=== PATIENT | male | born 1990 | race Caucasian/White ===

== ENCOUNTER 2023-09-30 10:17 | Emergency (ER) | payer SELFPAY ==
--- NOTE | 2023-09-30 10:35 | ED Physician Documentation ---
PD HPI WOUND RECHECK - Stated complaint Stated Complaint: LT HAND STITCHES - Chief complaint Chief Complaint: Laceration - Histroy obtained from History obtained from: Patient PD PAST MEDICAL HISTORY - Past Medical History Past Medical History: No - Past Surgical History Past Surgical History: Yes Ortho: Shoulder arthroplasty - Present Medications Home Medications: Ambulatory Orders Medication Instructions Recorded Confirmed No Known Home Medications 09/30/23 09/30/23 - Allergies Allergies/Adverse Reactions: Allergies Allergy/AdvReac Type Severity Reaction Status Date / Time No Known Drug Allergies Allergy Verified 09/30/23 10:33 - Social History Does the pt smoke?: Yes Smoking Status: Current every day smoker Does the pt drink ETOH?: Yes Does the pt have substance abuse?: No Substance Use and Type: Marijuana - Immunizations Immunizations are current?: No - POLST Patient has POLST: No Results - Vitals Vitals: Vital Signs - 24 hr 09/30/23 10:29 Temperature 36.2 C L Heart Rate 74 Respiratory 4 L Rate Blood Pressure 119/74 O2 Saturation 98 Oxygen O2 Source Room air Departure - Departure
--- NOTE | 2023-09-30 10:52 | ED Physician Documentation ---
PD HPI UPPER EXT INJURY - Stated complaint Stated Complaint: LT HAND STITCHES - Chief complaint Chief Complaint: Laceration - History obtained from History obtained from: Patient - History of Present Illness Location: Left, Hand (he states he fell and cut his palm on a piece of glass at the flexion crease of the middle finger MCP.), Finger Type of injury: Fall Timing - onset: Last night (he did clean it after and had it coverred with bandage.) Timing - details: Abrupt onset Worsened by: Moving, Palpating Associated symptoms: No: Weakness, Numbness, Tingling Similar symptoms before: Has not had sx before Review of Systems Neurologic: denies: Focal weakness, Numbness, Head injury, LOC PD PAST MEDICAL HISTORY - Past Medical History Past Medical History: No - Past Surgical History Past Surgical History: Yes Ortho: Shoulder arthroplasty - Present Medications Home Medications: Ambulatory Orders Medication Instructions Recorded Confirmed No Known Home Medications 09/30/23 09/30/23 - Allergies Allergies/Adverse Reactions: Allergies Allergy/AdvReac Type Severity Reaction Status Date / Time No Known Drug Allergies Allergy Verified 09/30/23 10:33 - Social History Does the pt smoke?: Yes Smoking Status: Current every day smoker Does the pt drink ETOH?: Yes Does the pt have substance abuse?: No Substance Use and Type: Marijuana - Immunizations Immunizations are current?: No - POLST Patient has POLST: No PD ED PE NORMAL - Vitals Vital signs reviewed: Yes - General General: Alert and oriented X 3, No acute distress, Well developed/nourished - Derm Derm: Normal color, Warm and dry - Extremities Extremities: Other (laceration to fatty tissue at flexion MCP crease left middle finger. No FB. Clean appearance. ) - Neuro Neuro: Alert and oriented X 3, No motor deficit (able to felx well at IP joints and MCP. ), No sensory deficit (normal sensation both sides of finger. ) Results - Vitals Vitals: Oxygen O2 Source Room air Procedures - Laceration (location) middle finger flexion crease Length in cm: 1.8 Wound type: Linear, Into subcut fat, Clean Neurovascular status: Sensory intact, Motor intact, Vascular intact Tendon involvement: Tendon intact Anesthesia: Lidocaine 1% with epi Wound preparation: Irrigated copiously NS, Wound explored, To the base Skin layer closure: Nylon, Interrupted, Size #-0 - enter number (4), Sutures - enter # (7) Other: Patient tolerated well, No complications PD Medical Decision Making - ED course Complexity details: re-evaluated patient (he did get pale and some nausea with feeling lightheaded while suturing. I laid him back flat from sitting position and improved promptly. Pulse check at the time felt about 50-60 to me. Was not on moniter but seemed simple vasovagal with prompt improvement. ), considered differential (fell and cut palm/finger on piece of glass. He does not suspect retained FB. ), d/w patient Departure - Departure Disposition: 01 Home, Self Care Clinical Impression: Laceration of left hand Qualifiers: Encounter type: initial encounter Foreign body presence: without foreign body Qualified Code(s): S61.412A - Laceration without foreign body of left hand, initial encounter Condition: Stable Record reviewed to determine appropriate education?: Yes Instructions: ED Laceration Hand Comments: It is okay to wash and shower. Clean off the wound twice a day with soap and water, or peroxide and water. Apply some antibiotic ointment to it to keep it moist. Also to watch for signs of infection such as purulence, redness or increasing pain. Return to your primary care or the ER at the specified time for suture removal. Suture removal 8 to 10 days. Tylenol ibuprofen as needed for pains. Forms: PCP List Discharge Date/Time: 09/30/23 11:37
[2023-09-30 11:42] VITALS: BP 116/61; O2SAT 99
== END 2023-09-30 11:37 | disposition home or self-care (01) ==
LOC: ED 10:17
DX: S61.412A Laceration without foreign body of left hand, initial encounter (principal); W19.XXXA Unspecified fall, initial encounter; W25.XXXA Contact with sharp glass, initial encounter; F17.200 Nicotine dependence, unspecified, uncomplicated
CPT/HCPCS: 12001; 99282

== ENCOUNTER 2024-03-11 16:41 | Outpatient (CLI) | payer MEDICAID, OTHER | END 2024-03-11 22:09 | disposition critical access hospital (66) | LOC: EMS 16:41 | DX: Z04.6 Encounter for general psychiatric examination, requested by authority (principal); R46.2 Strange and inexplicable behavior; Z59.00 Homelessness unspecified | CPT/HCPCS: A0425; A0429; A0999 ==

== ENCOUNTER 2024-03-11 16:59 | Emergency (ER) | payer MEDICAID, OTHER ==
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
[2024-03-11 17:21] LABS: BASOPHILS # (AUTO) 0.1 10^3/uL (0.0-0.1); BASOPHILS % (AUTO) 0.6 %; EOSINOPHILS # (AUTO) 0.2 10^3/uL (0.0-0.7); EOSINOPHILS % (AUTO) 1.9 %; HCT - HEMATOCRIT 42.4 % (42.0-52.0); HGB - HEMOGLOBIN 13.8 g/dL (14.0-18.0); LYMPHOCYTES # (AUTO) 2.3 10^3/uL (1.5-3.5); LYMPHOCYTES % (AUTO) 26.4 %; MEAN CORPUSCULAR HEMOGLOBIN 29.7 pg (27.0-31.0); MEAN CORPUSCULAR HGB CONC 32.5 g/dL (32.0-36.0); MEAN CORPUSCULAR VOLUME 91.4 fL (80.0-94.0); MEAN PLATELET VOLUME 9.2 fL (7.4-11.4); MONOCYTES # (AUTO) 0.9 10^3/uL (0.0-1.0); MONOCYTES % (AUTO) 10.3 %; NEUTROPHILS # (AUTO) 5.2 10^3/uL (1.5-6.6); NEUTROPHILS % (AUTO) 60.7 %; PLT - PLATELET COUNT 254 10^3/uL (130-450); RED BLOOD COUNT 4.64 10^6/uL (4.70-6.10); RED CELL DISTRIBUTION WIDTH 13.1 % (12.0-15.0); WHITE BLOOD COUNT 8.6 x10^3/uL (4.8-10.8)
[2024-03-11 17:30] LABS: BILIRUBIN,URINE NEGATIVE (NEGATIVE); GLUCOSE, URINE (UA) NEGATIVE (NEGATIVE); KETONES,URINE (UA) NEGATIVE (NEGATIVE); LEUKOCYTE ESTERASE, URINE NEGATIVE (NEGATIVE); NITRITE,URINE NEGATIVE (NEGATIVE); OCCULT BLOOD,URINE NEGATIVE (NEGATIVE); PH,URINE 6.5 PH (5.0-7.5); PROTEIN,URINE NEGATIVE (NEGATIVE); UROBILINOGEN,URINE 0.2 (NORMAL) E.U./dL (NORMAL)
[2024-03-11 17:32] LABS: CLARITY,URINE CLEAR (CLEAR)
[2024-03-11 17:36] LABS: MAGNESIUM 1.8 mg/dL (1.7-2.3)
[2024-03-11 17:41] LABS: AMPHETAMINE SCREEN,URINE POSITIVE (NEGATIVE); BARBITURATE SCREEN,UR NEGATIVE (NEGATIVE); BENZODIAZEPINES SCREEN, URINE NEGATIVE (NEGATIVE); BUPRENORPHINE SCREEN, URINE NEGATIVE (NEGATIVE); COCAINE SCREEN URINE NEGATIVE (NEGATIVE); METHADONE SCREEN, URINE NEGATIVE (NEGATIVE); METHAMPHETAMINES SCREEN, URINE POSITIVE (NEGATIVE); OPIATE SCREEN, URINE NEGATIVE (NEGATIVE); OXYCODONE SCREEN, URINE NEGATIVE (NEGATIVE); THC CANNABINOID SCREEN, URINE NEGATIVE (NEGATIVE); TRICYCLIC ANTIDEPRESSANT,URINE NEGATIVE (NEGATIVE)
[2024-03-11 17:42] LABS: ACETAMINOPHEN 0.2 ug/mL; ALBUMIN 4.8 g/dL (3.2-5.5); ALBUMIN/GLOBULIN RATIO 1.8 (1.0-2.2); ALKALINE PHOSPHATASE 63 IU/L (42-121); ALT ALANINE AMINOTRANSFERASE 23 IU/L (10-60); AST ASPARTATE AMINOTRANSFERASE 26 IU/L (10-42); BILIRUBIN,TOTAL 0.4 mg/dL (0.2-1.0); BUN - BLOOD UREA NITROGEN 11 mg/dL (6-20); CALCIUM 9.7 mg/dL (8.5-10.3); CARBON DIOXIDE - CO2 28 mmol/L (21-32); CHLORIDE 99 mmol/L (101-111); CK- CREATINE KINASE 373 IU/L (30-223); CREATININE 0.8 mg/dL (0.6-1.3); ETOH - ETHANOL < 10.0 mg/dL; GFR - MDRD 113 (>89); GLUCOSE 140 mg/dL (74-104); LIPASE 23 U/L (11-82); POTASSIUM 3.2 mmol/L (3.5-4.5); SODIUM 136 mmol/L (135-145); TOTAL PROTEIN 7.5 g/dL (6.4-8.9)
[2024-03-11 17:44] LABS: SALICYLATE < 1.5 mg/dL
[2024-03-11 17:50] LABS: THYROID STIMULATING HORMONE 1.25 uIU/mL (0.34-5.60)
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
[2024-03-12] MEDS: NICOTINE 21 MG PATCH TOP STA (03:15)
--- NOTE | 2024-03-12 05:53 | ED Physician Documentation ---
ED Addendum - Addendum Addendum: 03/12/24 05:51 The patient was signed out to me at change of shift, Pending return to sobriety after presenting high on methamphetamines. The patient was calm and cooperative overnight and by morning, was amiable and singing songs, stating that he was feeling better and he like to leave so he could smoke a cigarette. He denied further suicidal ideation. He was able to have meaningful conversation with staff and I felt he was stable for discharge home. Final impression: 1. Methamphetamine abuse 2. Psychosis Disposition: Discharge home in stable and improved condition.
[2024-03-12 06:46] VITALS: BP 142/84; O2SAT 99
--- NOTE | 2024-03-12 08:45 | ED Physician Documentation ---
ED Addendum - Addendum Addendum: Patient care assumed at shift change. Patient was seen by social work. Patient no longer appears intoxicated on methamphetamine. He is ambulatory with clear conversation. No thoughts of suicide. Per social work, patient is cleared to go home. Departure - Departure Disposition: 01 Home, Self Care Clinical Impression: Methamphetamine intoxication Psychosis Qualifiers: Psychosis type: unspecified psychosis type Qualified Code(s): F29 - Unspecified psychosis not due to a substance or known physiological condition Condition: Stable Instructions: ED Drug Abuse General Comments: Please avoid using illicit substances such as methamphetamine. Follow-up with [facility] as needed at [phone] to schedule psychiatric care and counseling. Forms: PCP List Discharge Date/Time: 03/12/24 08:50
== END 2024-03-12 08:50 | disposition home or self-care (01) ==
LOC: EDUNIT# → ED 16:59
DX: F15.129 Other stimulant abuse with intoxication, unspecified (principal); F29 Unspecified psychosis not due to a substance or known physiological condition; E87.6 Hypokalemia; R94.4 Abnormal results of kidney function studies; F17.200 Nicotine dependence, unspecified, uncomplicated; Z59.00 Homelessness unspecified
CPT/HCPCS: 36415; 80053; 80143; 80179; 80306; 81003; 82077; 82550; 83690; 83735; 84443; 85025; 87635; 90834; 99284; 99285; Q3014; 81001; 87086

== ENCOUNTER 2024-03-20 00:13 | Emergency (ER) | payer MEDICAID ==
--- NOTE | 2024-03-20 00:31 | ED Physician Documentation ---
History of Present Illness - Stated complaint Stated Complaint: MHE - History obtained from History obtained from: Patient - Additonal information Additional information: The patient is brought to the emergency department by police for chief complaint of "I need help". The patient states that he has been struggling with suicidal ideation and was trying to flag somebody down in the road to get help. He states everybody seem to be afraid to stop and help him so he just called 911 and the police came and got him. He denies taking meth or any other drugs tonight. He states he just does not feel like he is getting the help he needs. The patient was seen here about a week ago for methamphetamine intoxication and once sober, was evaluated by social work. The patient was no longer feeling suicidal and was deemed stable for discharge at that time. He states that "no one ever followed up with me" for outpatient services. The patient is currently homeless. He denies any attempts to harm himself tonight, other than being near traffic. He states he does feel as though he would harm himself if he left. No other complaints at this time. PD PAST MEDICAL HISTORY - Past Medical History Neuro: None HEENT: None Psych: ADD/ADHD - Past Surgical History Past Surgical History: Yes Ortho: Shoulder arthroplasty - Present Medications Home Medications: Ambulatory Orders Medication Instructions Recorded Confirmed No Known Home Medications 09/30/23 03/11/24 - Allergies Allergies/Adverse Reactions: Allergies Allergy/AdvReac Type Severity Reaction Status Date / Time No Known Drug Allergies Allergy Verified 03/20/24 00:45 - Social History Does the pt smoke?: Yes Smoking Status: Current every day smoker Does the pt drink ETOH?: Yes Does the pt have substance abuse?: No - Immunizations Immunizations are current?: No - POLST Patient has POLST: No PD ED PE NORMAL - Vitals Vital signs reviewed: Yes - General General: No acute distress, Well developed/nourished, Other (Alert, coherent, does not appear intoxicated.) - HEENT HEENT: Atraumatic, PERRL, EOMI, Moist mucous membranes - Neck Neck: Supple, no meningeal sign - Cardiac Cardiac: RRR, No murmur - Respiratory Respiratory: No respiratory distress, Clear bilaterally - Abdomen Abdomen: Soft, Non tender, Non distended - Derm Derm: Normal color, Warm and dry, No rash - Extremities Extremities: No deformity, No edema - Neuro Neuro: Other (Alert, appropriate. Ambulatory without difficulty and a narrow based gait. Coordinated, no ataxia. Clear and coherent speech.) - Psych Psych: Normal mood, Normal affect Results - Vitals Vitals: Vital Signs - 24 hr 03/20/24 00:35 Temperature 36.6 C Heart Rate 80 Respiratory 18 Rate Blood Pressure 127/93 H O2 Saturation 98 Oxygen O2 Source Room air - Labs Labs: Laboratory Tests 03/20/24 03/20/24 03/20/24 00:36 00:36 00:44 WBC 9.9 RBC 4.87 Hgb 14.2 Hct 44.1 MCV 90.6 MCH 29.2 MCHC 32.2 RDW 12.9 Plt Count 291 MPV 9.4 Neut # (Auto) 4.6 Lymph # (Auto) 4.2 H Sharkey # (Auto) 0.7 Eos # (Auto) 0.3 Baso # (Auto) 0.1 Absolute Nucleated RBC 0.00 Nucleated RBC % 0.0 Sodium 138 Potassium 3.4 L Chloride 105 Carbon Dioxide 24 Anion Gap 9.0 BUN 12 Creatinine 0.9 Estimated GFR (MDRD) 98 Glucose 94 Calcium 9.4 Total Bilirubin 0.5 AST 21 ALT 22 Alkaline Phosphatase 63 Total Protein 7.2 Albumin 4.8 Globulin 2.4 Albumin/Globulin Ratio 2.0 Lipase 25 TSH 1.69 Salicylates < 1.5 Urine Opiates Screen Ur Buprenorphine Scrn Ur Oxycodone Screen Urine Methadone Screen Acetaminophen 0.2 Ur Barbiturates Screen Ur Tricyclics Screen Ur Phencyclidine Scrn Ur Amphetamine Screen U Methamphetamines Scrn U Benzodiazepines Scrn Urine Cocaine Screen U Cannabinoids Screen Ur Drug Screen Comment Ethyl Alcohol < 10.0 SARS-CoV-2 (PCR) NOT DETECTED 03/20/24 02:59 WBC RBC Hgb Hct MCV MCH MCHC RDW Plt Count MPV Neut # (Auto) Lymph # (Auto) Sharkey # (Auto) Eos # (Auto) Baso # (Auto) Absolute Nucleated RBC Nucleated RBC % Sodium Potassium Chloride Carbon Dioxide Anion Gap BUN Creatinine Estimated GFR (MDRD) Glucose Calcium Total Bilirubin AST ALT Alkaline Phosphatase Total Protein Albumin Globulin Albumin/Globulin Ratio Lipase TSH Salicylates Urine Opiates Screen NEGATIVE Ur Buprenorphine Scrn NEGATIVE Ur Oxycodone Screen NEGATIVE Urine Methadone Screen NEGATIVE Acetaminophen Ur Barbiturates Screen NEGATIVE Ur Tricyclics Screen NEGATIVE Ur Phencyclidine Scrn NEGATIVE Ur Amphetamine Screen NEGATIVE U Methamphetamines Scrn NEGATIVE U Benzodiazepines Scrn NEGATIVE Urine Cocaine Screen NEGATIVE U Cannabinoids Screen POSITIVE H Ur Drug Screen Comment CUTOFF CONC BELOW: Ethyl Alcohol SARS-CoV-2 (PCR) PD Medical Decision Making - ED course Complexity details: reviewed old records, reviewed results, re-evaluated patient, considered differential, d/w patient ED course: The patient was worked up for medical clearance with labs including toxicology, urine drug screen, and COVID test. A telepsych evaluation was ordered. The patient's labs overall looked good. He was found to be positive for marijuana on his drug screen but otherwise, tox eval was negative. General labs were unremarkable. Patient was medically cleared to speak with the telepsychiatrist. The patient remained stable throughout his stay in the emergency department. Unfortunately, because of some technical issues on telepsych send, the consult still has not been able to be done. As such, I have also consulted social work in the event that the telepsych consult cannot be done in a timely manner. The patient will be signed out to the oncoming emergency physician at change of shift, pending mental health evaluation and final disposition.
[2024-03-20 00:57] LABS: BASOPHILS # (AUTO) 0.1 10^3/uL (0.0-0.1); BASOPHILS % (AUTO) 0.9 %; EOSINOPHILS # (AUTO) 0.3 10^3/uL (0.0-0.7); EOSINOPHILS % (AUTO) 2.9 %; HCT - HEMATOCRIT 44.1 % (42.0-52.0); HGB - HEMOGLOBIN 14.2 g/dL (14.0-18.0); LYMPHOCYTES # (AUTO) 4.2 10^3/uL (1.5-3.5); LYMPHOCYTES % (AUTO) 42.7 %; MEAN CORPUSCULAR HEMOGLOBIN 29.2 pg (27.0-31.0); MEAN CORPUSCULAR HGB CONC 32.2 g/dL (32.0-36.0); MEAN CORPUSCULAR VOLUME 90.6 fL (80.0-94.0); MEAN PLATELET VOLUME 9.4 fL (7.4-11.4); MONOCYTES # (AUTO) 0.7 10^3/uL (0.0-1.0); MONOCYTES % (AUTO) 6.8 %; NEUTROPHILS # (AUTO) 4.6 10^3/uL (1.5-6.6); NEUTROPHILS % (AUTO) 46.5 %; PLT - PLATELET COUNT 291 10^3/uL (130-450); RED BLOOD COUNT 4.87 10^6/uL (4.70-6.10); RED CELL DISTRIBUTION WIDTH 12.9 % (12.0-15.0); WHITE BLOOD COUNT 9.9 x10^3/uL (4.8-10.8)
[2024-03-20 01:06] LABS: ACETAMINOPHEN 0.2 ug/mL; ALBUMIN 4.8 g/dL (3.2-5.5); ALKALINE PHOSPHATASE 63 IU/L (42-121); ALT ALANINE AMINOTRANSFERASE 22 IU/L (10-60); AST ASPARTATE AMINOTRANSFERASE 21 IU/L (10-42); BILIRUBIN,TOTAL 0.5 mg/dL (0.2-1.0); BUN - BLOOD UREA NITROGEN 12 mg/dL (6-20); CALCIUM 9.4 mg/dL (8.5-10.3); CARBON DIOXIDE - CO2 24 mmol/L (21-32); CHLORIDE 105 mmol/L (101-111); CREATININE 0.9 mg/dL (0.6-1.3); ETOH - ETHANOL < 10.0 mg/dL; GFR - MDRD 98 (>89); GLUCOSE 94 mg/dL (74-104); LIPASE 25 U/L (11-82); POTASSIUM 3.4 mmol/L (3.5-4.5); SODIUM 138 mmol/L (135-145); TOTAL PROTEIN 7.2 g/dL (6.4-8.9)
[2024-03-20 01:07] LABS: SALICYLATE < 1.5 mg/dL
[2024-03-20 01:21] LABS: THYROID STIMULATING HORMONE 1.69 uIU/mL (0.34-5.60)
[2024-03-20 03:12] LABS: AMPHETAMINE SCREEN,URINE NEGATIVE (NEGATIVE); BARBITURATE SCREEN,UR NEGATIVE (NEGATIVE); BENZODIAZEPINES SCREEN, URINE NEGATIVE (NEGATIVE); BUPRENORPHINE SCREEN, URINE NEGATIVE (NEGATIVE); COCAINE SCREEN URINE NEGATIVE (NEGATIVE); METHADONE SCREEN, URINE NEGATIVE (NEGATIVE); METHAMPHETAMINES SCREEN, URINE NEGATIVE (NEGATIVE); OPIATE SCREEN, URINE NEGATIVE (NEGATIVE); OXYCODONE SCREEN, URINE NEGATIVE (NEGATIVE); THC CANNABINOID SCREEN, URINE POSITIVE (NEGATIVE); TRICYCLIC ANTIDEPRESSANT,URINE NEGATIVE (NEGATIVE)
--- NOTE | 2024-03-20 08:17 | TELEPSYCH PHYS NOTE ---
[facility] Telepsych Consult Consult Date: 03/20/24 Name of Referring Provider:: ED Provider Reason for Consult: suicidal ideation - Suicide Risk Sreening (ASQ Tool) In the past few weeks, have you wished you were ?: Yes In the past few weeks, have you felt that you or your family would be better off if you were ?: Yes In the past week, have you been having thoughts about killing yourself?: Yes Have you ever tried to kill yourself?: No - Assessment Language: [place] Rn Medical Surgical Required: No Cultural, Religion or Spiritual Preferences: unknown Notes: see initial ER evaluation Chief Complaint: "I was trying to get help with my lady and we were turned away and so we decided life was not worth living and we were going to walk into traffic..." History of Present Illness: Patient is a 33 year old male who presents to the ED with his female applied psychology professor after they were found by police on the side of the road looking like they were going to walk into traffic. Patient states he has been homeless since January when the mother of his daughter kicked him out. He is not currently working. He states that he needed "a vacation- I quit my job and I have more important work to do." He reports that he likes to smoke marijuana and roll his own [place] Spirt cigarettes. He denies other drug use. He was seen in the ER last week for meth intoxication and suicidal thoughts, but tells me now that he was "poisoned" and does not like to use meth. "I like herbs, ginseng, reid root...all the herbal remedies...the natural way...we are not supposed to have pharmacopia twist our brains...fresh organic marijuana and earth friendly tobacco..." Patient reports that when he was 10 when he was on Adderall he climbed a tree and tried to hang himself. He says he currently has all sorts of options for how he could kill himself. "I am not playing this game anymore...this is my life, it does not belong to anyone but me...if anyone is going to take my life it is going to be me..." Suicide Ideation - Homicide Ideation - Self Harm: no history of suicide attempts; current SI Psychiatric History - Treatment History: denies other than treatment for ADHD as a kid Community Resources Accessed: none Family Psych History/ History of suicide: unknown Nutritional Status: No nutritional concerns - Medication & Allergies Home Medications: Ambulatory Orders Medication Instructions Recorded Confirmed No Known Home Medications 09/30/23 03/11/24 Allergies/Adverse Reactions: Allergies Allergy/AdvReac Type Severity Reaction Status Date / Time No Known Drug Allergies Allergy Verified 03/20/24 00:45 - Drug & Alcohol History Does patient have Drug/ETOH history or addictive behavior?: Yes Use: Uses substance without health or social issues: Tobacco, Cannabis Use Issues: Intoxication, Delusions, Mood Disorder Abuse: Recurrent use of substance despite neg consequences: Cannabis Abuse Issues: Perceptual Disturbance Dependence: Experiences withdrawal or developed tolerances: Tobacco, Cannabis Dependence Issues: Perceptual Disturbance, Psychosis Tobacco Details: Cigarettes - Trauma Does the patient have a history of trauma, abuse, neglect or explotation?: No - Personal Information Does the patient have a history or present tendencies for violence?: None Does patient have any Legal Charges or Investigations?: No Environment & Living Situation - Social, Peer-Group (Note): Homeless Marital Status - Family Circumstances: states he has children, but got kicked out of the home where he was living with daughter's mom Stressors - Financial Concerns: homeless, financial Occupation: unemployed - Medical History Psychiatric: reports: ADD/ADHD Neurological: reports: None Eyes, Ears, Nose, Throat: reports: None - Surgical History Orthopedic: reports: Shoulder arthroplasty Childhood History: treatment for ADHD as a child - Mental Status Exam Appearance and Attire: disheveled, hair in face, unshaven Attitude and Behavior: fidgety, eyes darting around Speech: pressured Affect and Mood: "depressed" anxious Association and Thought Process: tangential Thought Content: +SI unknown plan but states there are many options Perception: some paranoia Sensorium, memory and orientation: awake, alert, oriented Intellectual - Cognitive functioning: average Insight and Judgement: limited Emotional and Behavioral Functioning: impaired Ability to Self-Care: fair - Personal Goals Short-term Goals: housing - Risk/Protective Factors Risk Factors: Trigger events leading to humiliation, shame and/or despair, Substance intoxication or withdrawal, Pending incarceration or homelessness Protective Factors / Internal: N/A Protective Factors / External: N/A - Plan Impression/Risk Assessment: Patient is a 33 year old male who was brought to the ER by police after he and girlfriend decided they were going to kill themselves by walking into traffic. Patient presents as hyperalert with some tangential speech, some paranoia. He is currently homeless, has no place to stay and states he has been unable to get help and assistance so he is going to kill himself. Patient would benefit from inpatient hospitalization at this time for safety and stabilization. He is refusing medication currently. If SW has a plan that he is amenable to for a place where he could go and be safe, then that might be preferable. He seems to be suicidal because he has been unable to get help, access housing and is tired of being on the streets. He states currently if he were to be discharged without a plan or place to go that he would kill himself. Treatment - Therapy Recommendations: supportive Pharmacological Recommendations: patient refuses any medications - Time Spent & Provider Location Telepsych consultation conducted via videoconferencing: Yes List names and roles of persons who participated in consult: MD Harsh - psychiatrist; Aletha- patient Telepsych Provider Location: [place], [place] Time Spent (Minutes): 45
[2024-03-20] MEDS: NICOTINE 21 MG PATCH TOP STA ×2 (08:47→09:58)
[2024-03-20 09:01] VITALS: BP 137/75; O2SAT 100
[2024-03-20] MEDS: OLANZapine ODT 5 MG TABLET TL ONE (10:02)
--- NOTE | 2024-04-13 20:51 | ED Physician Documentation ---
ED Addendum - Addendum Addendum: 04/13/24 20:50 Patient received a signout from outgoing physician, please see their do cumentation for further detail. Patient arrived with symptoms of depression. Arrived in conjunction with his girlfriend who is having similar psychiatric issues. Was evaluated by telepsychiatry, please see their documentation for further detail. Was not detainable and was offered voluntary inpatient treatment but he declined this. Was encouraged to follow-up with outpatient resources.
== END 2024-03-20 10:40 | disposition home or self-care (01) ==
LOC: ED 00:13
DX: R45.851 Suicidal ideations (principal); F90.9 Attention-deficit hyperactivity disorder, unspecified type; F17.210 Nicotine dependence, cigarettes, uncomplicated; Z59.00 Homelessness unspecified
CPT/HCPCS: 36415; 80053; 80143; 80179; 80306; 82077; 83690; 84443; 85025; 87635; 99284; A9270; G0425; Q3014